=== PATIENT | female | born 1960 | race Caucasian/White ===

== ENCOUNTER → 2023-06-16 12:30 | Outpatient (BNV) | payer OTHER, SELFPAY | PROVIDERS: Visit Provider Psychiatry & Neurology Psychiatry | DX: F31.60 Bipolar disorder, current episode mixed, unspecified (principal) | CPT/HCPCS: 90792; 99213 ==

== ENCOUNTER 2023-06-24 11:09 | Outpatient (REF) | payer OTHER, SELFPAY ==
[2023-06-24 12:20] LABS: Lithium 0.52 mmol/L (0.60-1.20)
[2023-06-24 12:29] LABS: Alanine Aminotransferase 25 U/L (0-31); Albumin Level 4.3 g/dL (3.5-5.0); Alkaline Phosphatase 119 U/L (39-117); Anion Gap 10 (12-20); Aspartate Amino Transferase 20 U/L (5-31); Bilirubin Total 0.3 mg/dL (0.0-1.0); Blood Urea Nitrogen 14 mg/dL (9-16); Calcium 9.7 mg/dL (8.4-10.2); Carbon Dioxide 25 mmol/L (22-29); Chloride 108 mmol/L (96-108); Estimated Glomerular Filt Rate 56; Glucose Fasting 102 mg/dL (60-99); Potassium 3.9 mmol/L (3.3-5.1); Sodium 139 mmol/L (135-145); Total Protein 7.4 g/dL (6.5-8.0)
[2023-06-24 12:44] LABS: Thyroid Stimulating Hormone 1.74 uIU/mL (0.32-4.0)
== END 2023-06-24 11:10 | disposition home or self-care (01) ==
LOC: HO.LAB 11:09
PROVIDERS: Visit Provider Clinical Nurse Specialist Psychiatric/Mental Health
DX: F31.9 Bipolar disorder, unspecified (principal); Z79.899 Other long term (current) drug therapy
CPT/HCPCS: 36415; 80053; 80178; 84443

== ENCOUNTER 2023-06-24 12:30 | Outpatient (RCR) | payer OTHER, SELFPAY ==
--- NOTE | 2023-06-16 10:43 | HO.PS.ADMBH ---
[facility] Date of Service: 06/16/23 Chief Complaint: OCD,ADHD,LINDA Sources of Information: patient interviewed, chart reviewed and crisis/core team assessment reviewed [facility] Healthcare Proxy: No Guardianship: No Medical Problems Affecting Mental Status: No Narrative: Rhonda is a 63-year-old white, , mother of 2. She was recently in 2 substance abuse programs. She has longstanding history of bipolar disorder with hypomanic episodes which was the reason for her only psychiatric hospitalization 8 years ago, ADHD, alcohol abuse disorder in remission, panic disorder. Cocaine use disorder. There is also reference to an opiate use disorder which she denies. She was referred to us through [facility] where she was last. She has been alcohol free for 10 years and marijuana free for the same amount of time. She was recently admitted to [facility] where she was for 32 days and within 2 weeks of discharge had a relapse and was readmitted to [place]. She does have a psychiatrist in [facility] and has a PCP. Current medications include Zyprexa 2.5 mg nightly, lithium carbonate 450 mg in the morning and 300 mg at night, Trileptal 300 mg b.i.d., Topamax 100 mg b.i.d., gabapentin 600 mg, hydroxyzine 50 mg b.i.d. p.r.n., clonidine 0.1 mg q.6 hours p.r.n. and Remeron 15 mg q.h.s.. She cannot tell me with certainty about her medications but she did have a list and she states that she has been compliant. She was initiated on naltrexone and was to be getting Vivitrol shots but she has not been hooked up with any centers that administer that. She does have refills for her medications. She has had suicidal ideations but no attempts. She does have problems with anger Past Psychiatric History: 1 prior psychiatric hospitalization about 8 years ago and 2 recent substance abuse programs within a short time of each other. [facility] Narrative: Positive for possible hypertension. PCP is Dr. her Pardo Social History: Rhonda states that both of her parents are . She has 1 sister and 2 brothers. She has been for 42 years and has 2 grown sons. Her recently retired from [employer]. The marriage has not been trouble free. He does not have substance abuse disorder. They do live together. Substance History: Reviewed in HPI Trauma History: None known Meds/Allergies Allergies Allergies Allergy/AdvReac Type Severity Reaction Status Date / Time Sulfa (Sulfonamide Allergy Unknown GI UPSET Unverified 08/16/20 18:45 Antibiotics) [SULFA (SULFONAMIDE ANTIBIOTICS)] Mental Status Exam Mental Status Exam Narrative: In today's visit Rhonda is alert, oriented and pleasant. Normal speech. Moderate eye contact. Speech is loud. Little eye contact. Affect is appropriate and varied. No signs of psychosis. Cognitively she is disorganized in her thought processes. She is not able to remember a lot of details. No elaboration. She is circumstantial and tangential. No suicidal ideations. Judgment is intact Assessment & Plan Assessment & Plan (1) Bipolar 1 disorder, mixed: Status: Acute Code(s): F31.60 - Bipolar disorder, current episode mixed, unspecified (2) Cocaine dependence: Status: Acute Code(s): F14.20 - Cocaine dependence, uncomplicated Plan Rhonda meets criteria for partial hospital program which he will continue. She will continue her current regimen of medications with no changes made today. The issue of Vivitrol injections will be pursued by our nurse. Patient educated on: diagnosis, medication risk/benefits and substance abuse Certification I certify that partial hospital treatment is medically necessary due to the symptoms and problems resulting from the patient's mental illness and the failure to treat the patient at the partial hospital level of care would likely result in the patient requiring inpatient psychiatric care which could not be prevented at a less intensive level of care. Time Spent With Patient Time: Total time managing care of this patient today ____ minutes.
[2023-06-16 12:17] VITALS: BP 122/62; PULSE 76
[2023-06-16 13:09] VITALS: BMI 63.8
--- NOTE | 2023-06-16 15:13 | PC.ADMIT ---
Addendum entered by Kirsten Irene RN 06/16/23 15:13: Medications reconciled with faxed discharge medication list sent via fax by Estelle Tinoco LPN from [facility] where patient resided for 1.5 months. Estelle also confirmed discharge list located on page 3 of 12 under Medications Returned at Discharge on 06/01/23. Original Note: Patient is a 63 year old female who was referred to [facility] by [facility] in [place] where she states she resided for 1.5 months for treatment of severe crack cocaine use. Per records patient has been using cocaine since age 20 and reports this is the first time she sought treatment. Prior to admission to [place] patient was at [facility] for 32 days and when she discharged she relapsed after two weeks. In addition per records patient has a history of Bipolar disorder, Opiate use (patient denied use), cannabis use, and hallucinogen use. She also has a history of ETOH use however reports not using for 10 years. Patient presents with labile mood, irritable and loud at times. Appearance is disheveled. She reports last use of cocaine was April 18, 2023. She reports her is supportive however stated he does not believe in relapses from substance use. Patient denied relapsing since discharge from treatment. She reports she is attending every night for additional support. She stated she needs to get the Vivitrol injection and thinks she is taking Naltrexone PO however is unclear. Naltrexone is listed in her discharge paperwork. She stated she wants to take Vivitrol for Cocaine use. Educated patient about the use of Vivitrol and Naltrexone. Patient denied using opiates and has not used ETOH since 2012. Patient is unclear what she is taking for medications. She stated if it is on the list from the treatment center that is what she is taking. She stated she uses a pill organizer. [ End ]
[2023-06-16 15:27] LABS: Amphetamine Screen Urine Not Detected (Not Detect); Barbiturates, Urine Not Detected (Not Detect); Benzodiazepines Screen Urine Not Detected (Not Detect); Cannabinoid Screen Urine Not Detected (Not Detect); Cocaine Screen Urine Not Detected (Not Detect); Fentanyl, urine Not Detected (Not Detect); Opiate Screen Urine Not Detected (Not Detect); Phencyclidine Screen Urine Not Detected (Not Detect)
--- NOTE | 2023-06-18 17:48 | HO.PHP ---
Clients case was reviewed and opened today in treatment team.
--- NOTE | 2023-06-19 08:39 | HO.PHP ---
[facility] staff faxed over a referral for OP therapy through [facility] khoi Ellis. [facility] staff is awaiting the date she is scheduled.
--- NOTE | 2023-06-22 09:20 | HO.PHP ---
[facility] staff met with Rhonda prior to group one beginning due to her appearing dysregulated. Rhonda stated that she is struggling today and uncertain to if she is going to be able to manage her emotions throughout the day. PHP staff encouraged Rhonda to try to attend group and if she becomes overwhelmed to take a break. Rhonda talked about how she doesn't want to continue to disrupt the group. PHP staff acknowledged Rhonda's concern and suggested she utilizes mindfulness skills. Rhonda disclosed how that is challenging for her. PHP staff stated if group is too challenging, she can always leave for the day if it is too much for her mentally/emotionally. Rhonda said she might have to but doesn't think her will get her if she is struggling. PHP staff stated that she will help assist in calling her if needed. Rhonda was receptive and was able to join the group.
--- NOTE | 2023-06-22 16:11 | HO.PHP ---
When [facility] staff checked in on Rhonda after group one, she was more dysregulated and visibly upset. Rhonda stated she can't do it and the people are too loud. Rhonda wanted support from the [facility] staff in contacting her to pick her up. PHP staff was receptive and the disclosed he could be there in 45 minutes. PHP staff was receptive. Rhonda didn't like that it was going to take that long and she was going to have to return to group. PHP staff informed her that it is a smaller group and it shouldn't be as stimulating. Rhonda was receptive. [facility] staff also explored if Rhonda would be okay with getting lab work done to make sure her lithium levels are good so medication can be adjusted as needed. Rhonda agreed and said she would be able to. [facility] staff encouraged her not to take her medication in the morning so she can complete the labs. Rhonda was in agreement. [facility] staff informed Rhonda to meet with the nurse after group 2. Rhonda was receptive. Rhonda did well throughout group 2 and stated she was feeling better. Rhonda did note having challenges with sleep and is going to go home to rest. [facility] staff was receptive.
--- NOTE | 2023-06-23 10:44 | HO.PHP ---
[facility] staff received a VM from [facility], providing the scheduled appointment date for OP therapy, which is July 03, 2023 at 10 AM with Destiny Dawn. Located on [address] [place] [address].
--- NOTE | 2023-06-23 10:47 | HO.PHPPROGNO ---
Subjective Subjective Date of Service: 06/23/23 Reason For Visit: OCD,ADHD,LINDA Healthcare Proxy: No Guardianship: No Medical Problems Affecting Mental Status: No Interim History: Rhonda is seen in follow-up today during her engagement at partial hospital program. She has been attending the groups but continues to have trouble sleeping and trouble with anger, primarily with her who now has retired and they have a lot of time together. I encouraged her to talk about this in groups. She is off of Cymbalta completely which I am happy to hear since she is somewhat manic. She is not sleeping well and is not feeling tired from that. I suggested increasing the Zyprexa to 7.5 mg, having the option of taking the whole thing at night or 2.5 mg in the morning and 5 mg at bedtime. She was supposed to do lithium level today but she took her morning dose and she will do it tomorrow and I can review it on Thursday when I am here again. She has been compliant with her other medications. She denies any substance use or abuse. Medication Compliance: Yes Attending Groups: Yes Review of Systems Review of Systems Sleep Yes all other systems are reviewed and are negative Mental Status Exam Mental Status Exam Narrative: In today's visit she is alert, oriented and pleasant. Normal speech. Moderate eye contact. Affect is appropriate and slightly labile. No overt signs of hypomania but she is and little hyperactive. No signs of psychosis. No SI/HI. Cognitively she has poor concentration and distractible. Judgment is intact Diagnostics Vital Signs (24Hr): BMI result Body Mass Index 63.8 Assessment & Plan Assessment & Plan (1) Bipolar 1 disorder, mixed: Status: Acute Code(s): F31.60 - Bipolar disorder, current episode mixed, unspecified Plan Continue current medications. Increase Zyprexa to 7.5 mg daily. Get a lithium level tomorrow and review on 06/26 Patient educated on: diagnosis, medication risk/benefits and substance abuse Certification I certify that partial hospital treatment is medically necessary due to the symptoms and problems resulting from the patient's mental illness and the failure to treat the patient at the partial hospital level of care would likely result in the patient requiring inpatient psychiatric care which could not be prevented at a less intensive level of care. Total time managing care of this patient today ____ minutes. Discharge Plan Discharge Attending provider: Rell Ortiz Medications: New olanzapine [Zyprexa] 5 mg tablet 5 mg PO BEDTIME Qty: 14 0RF Discontinued duloxetine 60 mg capsule,delayed release(DR/EC) 120 mg PO DAILY No Action gabapentin 600 mg tablet 600 mg PO TID cetirizine 10 mg tablet 10 mg PO DAILY naltrexone 50 mg tablet 50 mg PO DAILY lithium carbonate 300 mg tablet extended release 300 mg PO BEDTIME oxcarbazepine 300 mg tablet 300 mg PO BID simvastatin 80 mg tablet 80 mg PO DAILY olanzapine 2.5 mg tablet 2.5 mg PO BEDTIME lithium carbonate 450 mg tablet extended release 450 mg PO QAM lansoprazole 30 mg capsule,delayed release(DR/EC) 30 mg PO BID topiramate 200 mg tablet 200 mg PO TID mirtazapine 15 mg tablet 15 mg PO BEDTIME albuterol sulfate 90 mcg/actuation HFA aerosol inhaler 1 puff inhalation Q4H PRN (Reason: Shortness Of Breath) fluticasone propionate 50 mcg/actuation spray,suspension 2 spray intranasal BID trospium 20 mg tablet 20 mg PO BID budesonide-formoterol [Symbicort] 160-4.5 mcg/actuation HFA aerosol inhaler 2 inh inhalation BID Biotene Dry Mouth Oral Rinse Mouthwash 1 ml MUCOUS MEMBRANE Q4H PRN (Reason: Dry Mouth) Rx Instructions: swish for 15-30 secs , then spit out; do not swallow Stand Alone Forms: Patient Portal Discharge page
--- NOTE | 2023-06-23 11:00 | HO.PHP ---
PHP staff reached out to [facility] to place a referral for substance IOP. PHP staff spoke with Latasha. Ada informed the clinician that they do accept her insurance and provided options around which IOP Rhonda would like to be in. Rhonda informed the PHP staff she would like to be in the 3 day program for 11 weeks. PHP staff relayed the information to Ada. Ada was receptive. PHP staff explored when they would be able to start Rhonda in the program. Ada voiced that they can start her this week but they would have to call her to do pre registration prior. PHP staff was receptive and voiced that Rhonda won't be discharging till the , therefore, won't be able to beginning until after then. Ada was receptive and asked for the clinician to fax information over around medication and the biopsychosocial. PHP staff was receptive. After getting off the phone, PHP staff relayed the information to Rhonda and informed her to expect a phone call. Rhonda was receptive and expressed excitement due to her liking there program when she went last time.
--- NOTE | 2023-06-23 15:07 | HO.PHP ---
[facility] staff met with Rhonda and the metal numerical control programmer, due to her vaping in the first group. Rhonda stated that she needs to vape because she has panic attacks. The community recreation programmer informed her that we have zero tolerance around her vaping and if we continue to see her vaping in the groups, she is going to be discharged from the program. Rhonda was receptive and talked about her being ignorant and she doesn't know why she can't just stop. She asked the community recreation programmer if we could assist. The community recreation programmer was receptive and talked to her about meeting with the nurse around nicotine replacements. Rhonda also asked if she could extend her time in the program. The community recreation programmer informed her that we could. [facility] staff informed Rhonda that she has an upcoming OP appointment and provided that information to her. [facility] staff also explored with Rhonda how much longer she could extend her time but Rhonda was hoping for 2 more weeks. PHP staff stated that she can refer her to an IOP program through [facility] that is 11 weeks and the focus is around substances. Rhonda was in agreement and stated she would like to do that.
--- NOTE | 2023-06-23 15:11 | HO.PHP ---
[facility] staff observed Rohnda vaping in group 4 and had spoken to her at 2 PM. PHP staff stated that she cannot continue to vape on campus grounds and stated we provided alternatives earlier. Rhonda was receptive and asked if she is being discharged from the program. PHP staff disclosed not at this time and we would like for her to stay and get what she needs from the program. [facility] staff informed Rhonda that the prescriber had filled a prescription that she can cotton picking machine operator at the pharmacy to help with the cravings during group. Rhonda was receptive. [facility] staff also encouraged Rhonda to not bring her vape in tomorrow so she is not tempted and if she does bring it in to give it to a staff. Rhonda disclosed that someone is going to need to take it from her. [facility] staff was receptive and reminded her that we have zero tolerance for that behavior. Rhonda was receptive.
--- NOTE | 2023-06-23 16:52 | HO.PHP ---
[facility] staff received a phone call from Carmen from [facility], in which she noted Rhonda was in there program in February of 2023 and she is not an appropriate fit for the program. Carmen mentioned that this is a substance IOP and she appeared to be struggling severely with her mental health, therefore, a mental health program is more suitable for her. [facility] staff was receptive and stated that she will inform Rhonda that she does not qualify for the program at this time. Carmen was receptive.
--- NOTE | 2023-06-24 13:20 | HO.PHP ---
[facility] staff was informed that Rhonda was not in group at the time, in which the clinician was asked if she could help see if Rhonda is still here. [facility] clinician was receptive. [facility] clinician found Rhonda outside on the steps attached to the building on her phone and vaping. [facility] clinician informed Rhonda again that they have zero tolerance for vaping and told her that she cannot do that. Rhonda became upset and stated she is not sure what the big deal is. [facility] clinician reminded her this is a smoke free campus. Rhonda continued to grow annoyed. Once in the building Rhonda vaped one last time. [facility] clinician again told Rhonda that she cannot do that and she just gone done telling her that. [facility] clinician and wireless development manager met with Rhonda. wireless development manager informed her that due to the conversation held yesterday, she will be discharged from the program. The engineering program analyst disclosed that she tried helping her get the nicotine replacement and asked if she picked up the gum at the pharmacy. Rhonda reported that she had not because she does not want the gum she wanted the patch. wireless development manager voiced that the gum was all her insurance company would approve of. When she was informed she no longer can be here due to not following the rules and limitations of the hospital/group setting, she had left the building upset, uncertain to where she had gone, since staff could not find her. Rhonda will be administratively discharged effective today.
--- NOTE | 2023-06-25 09:42 | HO.PHP ---
When Rhonda came in after being told that she was discharged yesterday I sat and met with her. We discussed her discharge and although she was upset at the start she quickly calmed down and stated that she understood that she broke the rules by vaping in the building. She agreed to the discharge. She states that she has outpatient providers and [place]. She denies any safety concerns.
== END 2023-06-24 23:59 | disposition home or self-care (01) ==
LOC: HO.PHPA 12:30
PROVIDERS: Psychiatry & Neurology Psychiatry; Visit Provider Psychiatry & Neurology Psychiatry
DX: F31.60 Bipolar disorder, current episode mixed, unspecified (principal); F14.20 Cocaine dependence, uncomplicated; F10.11 Alcohol abuse, in remission; Z79.899 Other long term (current) drug therapy
CPT/HCPCS: 80307; 90791; 90853